=== PATIENT | male | born 1950 | race Caucasian/White ===

== ENCOUNTER 2021-09-20 08:45 | Emergency (ER) | payer OTHER ==
[2021-09-20 08:55] VITALS: BMI 25.0
[2021-09-20] MEDS ORDERED: BEBTELOVIMAB (EUA) 175 MG/2 ML VIAL IVPUSH ONE (10:10)
[2021-09-20 12:00] VITALS: BP 120/75; PULSE 78; TEMP 97.8
== END 2021-09-20 12:25 | disposition home or self-care (01) ==
LOC: JER 08:45
DX: U07.1 COVID-19 (principal)
CPT/HCPCS: 99284-25; Q0222

== ENCOUNTER 2023-09-04 04:26 | Day surgery (SDC) | payer OTHER ==
[2023-08-31 13:49] VITALS: BMI 27.6
[2023-09-04 08:34] VITALS: TEMP 97.7
[2023-09-04 08:37] VITALS: PULSE 64
[2023-09-04 08:56] VITALS: BP 128/68; RESP 17
== END 2023-09-04 09:04 | disposition home or self-care (01) ==
LOC: JASU-ENDO 04:26
PROVIDERS: ATTEND Internal Medicine Gastroenterology
PROC: 0DBH8ZX Excision of Cecum, Via Natural or Artificial Opening Endoscopic, Diagnostic (ICD-10-PCS; principal; 2023-09-04 08:00)
DX: Z12.11 Encounter for screening for malignant neoplasm of colon (principal); K63.5 Polyp of colon; K57.30 Diverticulosis of large intestine without perforation or abscess without bleeding; I10 Essential (primary) hypertension; Z83.719 Family history of colon polyps, unspecified
CPT/HCPCS: 88305-TC